=== PATIENT | female | born 1980 | race Caucasian/White ===

== ENCOUNTER → 2017-02-25 | Outpatient (CLI) | payer OTHER ==
[~2017-02-25] MED LIST: BCPILLS PO; IBUP-1427 PO
[2017-02-25 10:49] LABS: BASO % 0.3 %; BASO ABS # 0.02 K/uL (0-0.2); COMPLETE YES; EOS % 1.1 %; HEMATOCRIT 41.9 % (37-47); IG% 0.1 %; LYMPH % 29.8 %; LYMPH ABS # 2.25 K/uL (1.2-3.4); MEAN CELL VOLUME 92.3 fL (80-100); MEAN CORPUSCULAR HEMOGLOBIN 30.6 pg (25-34); MEAN CORPUSCULAR HGB CONC 33.2 g/dl (32-36); MONO % 9.3 %; NEUT % 59.4 %; PLATELET COUNT 204 K/uL (130-400); RED BLOOD COUNT 4.54 M/uL (4.2-5.4); WHITE BLOOD COUNT 7.56 K/uL (4.8-10.8)
[2017-02-25 11:25] LABS: ALT/SGPT 21 U/L (12-78); AST/SGOT 12 U/L (15-37); BLOOD UREA NITROGEN 13 mg/dl (7-18); BUN/CREATININE RATIO 15.8 (10-20); CALCIUM 8.5 mg/dl (8.5-10.1); CARBON DIOXIDE 24 mmol/L (21-32); CHLORIDE 112 mmol/L (98-107); CHOLESTEROL 167 mg/dl (0-200); CREATININE 0.79 mg/dl (0.60-1.20); GLUCOSE 94 mg/dl (70-99); SODIUM 143 mmol/L (136-145)
[2017-02-25 11:37] LABS: ALKALINE PHOSPHATASE 117 U/L (45-117); CHOLESTEROL/HDL RATIO 3.9; HDL CHOLESTEROL 43 mg/dl; LDL CHOLESTEROL CALCULATED 107 mg/dl; THYROID STIMULATING HORMONE 0.965 uIu/ml (0.300-4.500); TRIGLYCERIDES 85 mg/dl (0-150); VERY LOW DENSITY LIPOPROT CALC 17 mg/dl
== END | disposition home or self-care (01) ==
LOC: C.LABBC 08:20
PROVIDERS: ATTEND Obstetrics & Gynecology
DX: E66.01 Morbid (severe) obesity due to excess calories (principal)

== ENCOUNTER → 2017-04-10 | Outpatient (CLI) | payer OTHER | END | disposition home or self-care (01) | LOC: C.LAB 01:49 | DX: Z02.83 Encounter for blood-alcohol and blood-drug test (principal) ==